=== PATIENT | male | born 1980 | race Caucasian/White ===

== ENCOUNTER 2018-10-29 14:21 | Day surgery (SDC) | payer BC ==
[2018-10-29] MEDS ORDERED: LR 1,000 ML IV ONE (14:38)
--- NOTE | 2018-10-29 14:39 | PDANEPAE ---
ANE History of Present Illness posterior OP bleed s/p tonsillectomy ANE Past Medical History - Cardiovascular History Hx Hypertension: Yes Hx Arrhythmias: No Hx Chest Pain: No Hx Coronary Artery / Peripheral Vascular Disease: No Hx CHF / Valvular Disease: No Hx Palpitations: No - Pulmonary History Hx COPD: No Hx Asthma/Reactive Airway Disease: No Hx Recent Upper Respiratory Infection: No Hx Oxygen in Use at Home: No Hx Sleep Apnea: Yes ANE Review of Systems Review of Systems: - Exercise capacity Exercise capacity: >=4 METS ANE Patient History - Allergies Allergies/Adverse Reactions: Sulfa (Sulfonamide Antibiotics) Allergy (Verified 10/29/18 14:39) - NPO status NPO Since - Solids (Date): 10/29/18 NPO Since - Solids (Time): 11:30 - Anes Hx Anes Hx: no prior problems - Smoking Hx Smoking Status: Never smoked - Alcohol Use Alcohol Use: None - Family Anes Hx Family Anes Hx: none ANE Labs/Vital Signs - Vital Signs Vital Signs: reviewed preoperatively; see RN documention for details ANE Physical Exam - Airway Neck exam: FROM Mallampati Score: Class 2 Mouth exam: normal dental/mouth exam Mouth image: 1 - broken tooth - Pulmonary Pulmonary: no respiratory distress, clear to auscultation - Cardiovascular Cardiovascular: regular rate and rhythym, no murmur, rub, or gallop - ASA Status ASA Status: II ANE Anesthesia Plan Anesthesia Plan: general endotracheal anesthesia (RSI for emergency)
[2018-10-29] MEDS ORDERED: MIDAZOLAM 2 MG/2 ML VIAL IVP ONE (14:43)
[2018-10-29] MEDS ORDERED: OXYMETAZOLINE 30 ML NASAL SPRAY EACHNARE ONE (14:44)
--- NOTE | 2018-10-29 14:44 | PDGENHP ---
History & Physical Chief Complaint: Post op tonsil bleed History of Present Illness: Clot left tonsillar fossa, coughed up this afternoon Relevant Physical Exam: Prominent clot in left tonsillar fossa. Small amount of bleeding Cardiorespiratory Assessment: Chest: Lung CTAB, no wheezes. Heart: RRR no m/r/g
[2018-10-29] MEDS ORDERED: fentaNYL 100 MCG/2 ML INJ ONE ×2 (14:48→16:07)
[2018-10-29] MEDS ORDERED: PROPOFOL 200 MG/20 ML VIAL ONE (14:48)
[2018-10-29] MEDS ORDERED: HYDROCODONE/APAP 5/325 TAB PO PRN (15:53)
[2018-10-29] MEDS ORDERED: ONDANSETRON 4 MG/2 ML VIAL IVP PRN (15:53)
[2018-10-29] MEDS ORDERED: ACETAMINOPHEN 500 MG TAB PO PRN (15:53)
[2018-10-29] MEDS ORDERED: fentaNYL 100 MCG/2 ML INJ IVP PRN (15:53)
[2018-10-29] MEDS ORDERED: PROMETHAZINE HCL 25 MG/ML INJ IVP PRN (15:53)
[2018-10-29] MEDS ORDERED: NALOXONE HCL 0.4 MG/ML INJ IVP PRN (15:53)
[2018-10-29] MEDS ORDERED: oxyCODONE IR 5 MG TAB PO PRN (15:53)
--- NOTE | 2018-10-29 15:53 | POSTOPPROG ---
Post Op Note Date of Operation: 10/29/18 Surgeon: Jun Davis Pre-op Diagnosis: Post op tonsi bleed Post-op Diagnosis: Same Indication: Bleeding Procedure: Cauterization of post op tonsil bleed. Inf/Abcess present in the surg proc area at time of surgery?: No EBL: Minimal (45ml)
--- NOTE | 2018-10-29 15:55 | POSTANESTH ---
Post Anesthetic Evaluation Cardiovascular Status: Normal, Stable, Similar to Pre-Op Cond Respiratory Status: Normal, Stable, Similar to Pre-op Cond. Level of Consciousness/Mental Status: Can Participate in Eval, Alert and Oriented Pain Control: Adequate, Prn Tx Ordered Nausea/Vomiting Control: Adequate, Prn Tx Ordered Complications Possibly Related to Anesthesia: None Noted
[2018-10-29] MEDS ORDERED: HYDROCOD/APAP 7.5/325 IN 15ML UDCUP PO PRN (16:04)
--- NOTE | 2018-10-29 16:44 | SOAPPROG ---
SOAP Progress Note Assessment/Plan: Assessment: Pt seen by Dr. Davis. Doing well. Uvular edema. Tonsillar fossae dry. Okay to discharge Follow up as planned tomorrow in clinic. Plan: 10/29/18 16:42 Objective: Vital Signs Temp Pulse Resp BP Pulse Ox 18 104/83 H 93 10/29/18 16:31 10/29/18 16:36 10/29/18 16:36 ICD10 Worksheet Patient Problems: Problems Problem Status Onset Primary post tonsillectomy hemorrhage Acute - ICD10 Problem Qualifiers (1) Primary post tonsillectomy hemorrhage
[2018-10-29 17:21] VITALS: BP 122/84
--- NOTE | 2018-10-29 18:40 | GOP ---
[f rep st] OPERATIVE REPORT DATE OF OPERATION: 10/29/2018 SURGEON: Jun Davis MD ANESTHESIA: General endotracheal. PREOPERATIVE DIAGNOSIS: Postoperative tonsillectomy bleeding. POSTOPERATIVE DIAGNOSIS: Postoperative tonsillectomy bleeding. PROCEDURE PERFORMED: Cauterization of postoperative tonsillectomy bleeding. FINDINGS: Oozing from the left inferior tonsillar pole. SPECIMENS: None. ESTIMATED BLOOD LOSS: 45 mL. DESCRIPTION OF PROCEDURE: The patient was placed in a supine position and orally endotracheally intu bated. The right tonsillar fossa was clear. He had a large clot in the left tonsillar fossa that wa s evacuated. A slight bit of oozing from the superior pole that was cauterized. He had more oozing from the left inferior pole and base of tongue, which was cauterized with suction cautery. We observ ed for several minutes and there was no further bleeding noted. The stomach was suctioned. He lorena ated the procedure well, was in good condition at end of procedure. /[id number]/MODL
== END 2018-10-29 17:05 | disposition home or self-care (01) ==
LOC: FSGY 14:21 → UNDOADMOB 16:04 → F3N 16:04 → FSGY 17:05 → UNDODISOB 17:05
PROVIDERS: ATTEND Otolaryngology
PROC: 0W337ZZ Control Bleeding in Oral Cavity and Throat, Via Natural or Artificial Opening (ICD-10-PCS; principal; 2018-10-29 15:45)
DX: J95.830 Postprocedural hemorrhage of a respiratory system organ or structure following a respiratory system procedure (principal)
CPT/HCPCS: J2250; J2704; J3010